=== PATIENT | male | born 1945 | race Caucasian/White ===

== ENCOUNTER 2016-10-20 12:30 | Outpatient (RCR) | payer MEDICARE, BC ==
[~2016-10-20 12:30] MED LIST: ADVIL200 MG PO; B COMPLEX #11 TA1 PO; CENTRUM SILVER1 TAB; CLARITIN 1010 MG/TAB PO; CORTIZONE-10 MAXIM11 TP; COUMADIN 22.5 MG/TAB PO; CPAP; DURLAZA162.5 MG PO; HCTZ12.5TAB PO; LOTENSIN40 MG PO; LYSINE 500500 MG/TAB PO; NASACORT OTC NS; NASONEX SPRAY17 GM NS; NATURAL C500 MG PO; NIACIN500 M4 PO; NITROSTAT0.4 MG/TAB SL; NORVASC 5MG5 MG/TAB PO; OSCAL 500 TAB500 MG PO; PLAVIX 75MG TAB75 MG PO; SALINE MIST 4545 ML NS; SINGULAIR 110 MG/TAB PO; TENORMIN 5050 MG/TAB PO; TYLENOL 500MG500 MG PO; TYLENOL 8 HR PO; VITAMIN D 400400 IU PO; ZOCOR 40MG40 MG PO
== END 2016-11-21 09:52 | disposition still patient (30) ==
LOC: MKS.ESL.PT 12:30
DX: M13.88 Other specified arthritis, other site (principal)
CPT/HCPCS: G8987-GP; G8988-GP

== ENCOUNTER 2017-07-27 08:02 | Inpatient (IN) | payer MEDICARE, BC ==
[~2017-07-27] VITALS: Ht 182.9 cm; Wt 109.2 kg
[2017-07-27 08:45] VITALS: BP 138/67; PULSE 53; TEMP 97.1
[2017-07-27] MEDS ORDERED: LIPITOR 40MG TA40 MG PO (08:57)
[2017-07-27] MEDS ORDERED: LOPRESSOR 550 MG/TAB PO (08:58)
[2017-07-27 10:20] LABS: HEMATOCRIT 43.4 % (42.0-52.0); HEMOGLOBIN 15.2 g/dl (13.5-18.0); MEAN CELL VOLUME 91 fl (80.0-100.0); MEAN CORPUSCULAR HEMOGLOBIN 32 pg (27.0-31.0); MEAN CORPUSCULAR HGB CONC 35 g/dl (33.0-37.0); MEAN PLATELET VOLUME 10.4 fl (7.4-10.4); PLATELET COUNT 223 K/mm3 (130-400); RED BLOOD COUNT 4.78 M/mm3 (4.20-5.60); REDCELL DISTRIBUTION WIDTH-CV 12.6 % (11.5-14.5); WHITE BLOOD COUNT 8.8 K/mm3 (4.8-10.8)
[2017-07-27 10:25] LABS: INR 2.8 (0.8-3.0); PROTHROMBIN TIME 32.8 SECONDS (9.7-12.8)
[2017-07-27 10:34] LABS: BILIRUBIN,TOTAL 0.8 mg/dL (0.0-1.0); CREATININE, serum 0.97 mg/dL (0.66-1.25); POTASSIUM 3.7 mmol/L (3.4-5.0); TOTAL PROTEIN 6.5 gm/dL (6.4-8.2)
[2017-07-27 11:24] VITALS: BP 136/86; PULSE 72; TEMP 97.5
[2017-07-27 16:15] VITALS: BP 126/73; PULSE 77; TEMP 97.6
[2017-07-27 20:59] VITALS: BP 116/63; PULSE 114; TEMP 97.3
[2017-07-28 00:02] VITALS: BP 125/70; PULSE 74; TEMP 98.1
[2017-07-28 03:54] VITALS: BP 117/75; PULSE 58; TEMP 98.1
[2017-07-28 07:30] LABS: INR 2.7 (0.8-3.0); PROTHROMBIN TIME 31.1 SECONDS (9.7-12.8)
[2017-07-28 07:43] LABS: CALCIUM 8.9 mg/dL (8.4-10.2); CREATININE, serum 1.05 mg/dL (0.66-1.25); POTASSIUM 3.6 mmol/L (3.4-5.0)
[2017-07-28 07:44] VITALS: BP 128/77; PULSE 58; TEMP 97.2
[2017-07-28 11:41] VITALS: BP 119/70; PULSE 58; TEMP 98.2
[2017-07-28 15:50] VITALS: BP 121/70; PULSE 63; TEMP 97
[2017-07-28 20:28] VITALS: BP 109/69; PULSE 56; TEMP 97.6
[2017-07-29] VITALS (8 sets, daily range): BP systolic 111–143; BP diastolic 73–88; PULSE 53–94; TEMP 97.6–98.4
[2017-07-29 07:53] LABS: INR 2.6 (0.8-3.0); PROTHROMBIN TIME 30.4 SECONDS (9.7-12.8)
[2017-07-29 07:58] LABS: CALCIUM 8.7 mg/dL (8.4-10.2); CREATININE, serum 1.03 mg/dL (0.66-1.25); POTASSIUM 3.1 mmol/L (3.4-5.0)
[2017-07-29 12:15] LABS: CALCIUM 8.9 mg/dL (8.4-10.2); CREATININE, serum 1.08 mg/dL (0.66-1.25); POTASSIUM 3.7 mmol/L (3.4-5.0)
[2017-07-29] MEDS ORDERED: BETAPACE 80MG80 MG PO (14:18)
[2017-07-29] MEDS ORDERED: K-DUR20 MEQ PO (14:19)
== END 2017-07-29 14:50 | disposition home or self-care (01) | DRG 310 ==
LOC: EUO 08:02 → MEDICAL 08:03
PROVIDERS: Internal Medicine Cardiovascular Disease
PROC: 5A2204Z Restoration of Cardiac Rhythm, Single (ICD-10-PCS; principal; 2017-07-27)
DX: I48.0 Paroxysmal atrial fibrillation (principal); Z95.5 Presence of coronary angioplasty implant and graft; Z79.01 Long term (current) use of anticoagulants
CPT/HCPCS: J2704

== ENCOUNTER 2020-02-28 05:22 | Day surgery (SDC) | payer MEDICARE, BC ==
[~2020-02-28] VITALS: Ht 180.3 cm; Wt 117.1 kg
[~2020-02-28 05:22] MED LIST changes: +BETAPACE 80MG80 MG PO; +K-DUR20 MEQ PO; +LIPITOR 40MG TA40 MG PO; +LOPRESSOR 550 MG/TAB PO; +SALINE 45 ML45 ML NS; -SALINE MIST 4545 ML NS; +TUSSIN DM CLEA120 ML PO
[2020-02-28 05:48] VITALS: BP 167/87; PULSE 59; TEMP 98.2
[2020-02-28 05:50] VITALS: BP 167/87; PULSE 59; TEMP 98.2
[2020-02-28] MEDS ORDERED: K-TAB20 PO (06:16)
[2020-02-28] MEDS ORDERED: COUMADIN 22.5 MG/TAB PO (06:18)
[2020-02-28] MEDS ORDERED: GOOD NEIGHBOR P10 M5 PO (06:21)
[2020-02-28] MEDS ORDERED: AFRIN 15 ML15 ML NS (06:22)
--- NOTE | 2020-02-28 06:54 | NUR ---
The patient was taken via cart to the recovery room to have a nerve block placed prior to surgery for post operative pain control. The patient's chart was sent with him and will be taken with him when he taken to the operating room. The patient's belongings were transferred to the recovery room and will be taken up to the 3rd floor with the patient post operatively.
--- NOTE | 2020-02-28 07:40 | NUR ---
The patient's surgery has been cancelled for today and has been rescheduled for later this week. The patient's IV to his right forearm was removed and a pressure dressing was applied to the site. The patient is dressed and ready to be escorted out. The patient contacted his and she is here to drive him home.
== END 2020-02-28 07:40 | disposition home or self-care (01) ==
LOC: SDCO 05:22 → INPTSU 05:22 → SURG 05:22 → EDSTATUS 07:30 → INPTSU 07:40 → SDCO 07:40
DX: N28.89 Other specified disorders of kidney and ureter (principal); Z53.9 Procedure and treatment not carried out, unspecified reason; I48.91 Unspecified atrial fibrillation; I25.10 Atherosclerotic heart disease of native coronary artery without angina pectoris; G47.33 Obstructive sleep apnea (adult) (pediatric); E78.5 Hyperlipidemia, unspecified; I10 Essential (primary) hypertension; N40.0 Benign prostatic hyperplasia without lower urinary tract symptoms; Z82.3 Family history of stroke; Z80.0 Family history of malignant neoplasm of digestive organs; Z80.9 Family history of malignant neoplasm, unspecified; Z79.01 Long term (current) use of anticoagulants; Z79.82 Long term (current) use of aspirin; Z79.899 Other long term (current) drug therapy
CPT/HCPCS: OP; J2250; J2704; J2795; J3010; J7120

== ENCOUNTER 2020-02-28 08:48 | Inpatient (IN) | payer MEDICARE, BC ==
[~2020-02-28] VITALS: Ht 182.9 cm; Wt 117.6 kg
[~2020-02-28 08:48] MED LIST changes: +AFRIN 15 ML15 ML NS; +GOOD NEIGHBOR P10 M5 PO; +K-TAB20 PO
[2020-03-02] VITALS (8 sets, daily range): BP systolic 133–176; BP diastolic 65–89; PULSE 57–82; TEMP 97.7–98
--- NOTE | 2020-03-02 11:25 | NUR ---
The patient was taken over to the recovery room via cart to have a nerve block completed. The patient's chart was sent with him over to the recovery room.
[2020-03-02 19:38] LABS: HEMATOCRIT 43.8 % (42.0-52.0); HEMOGLOBIN 14.8 g/dl (13.5-18.0); MEAN CELL VOLUME 92 fl (80.0-100.0); MEAN CORPUSCULAR HEMOGLOBIN 31 pg (27.0-31.0); MEAN CORPUSCULAR HGB CONC 34 g/dl (33.0-37.0); MEAN PLATELET VOLUME 10.3 fl (7.4-10.4); PLATELET COUNT 255 K/mm3 (130-400); RED BLOOD COUNT 4.76 M/mm3 (4.20-5.60); REDCELL DISTRIBUTION WIDTH-CV 13.1 % (11.5-14.5)
[2020-03-02 19:48] LABS: CALCIUM 8.7 mg/dL (8.4-10.2); CREATININE, serum 1.69 (0.66-1.25); POTASSIUM 4.7 mmol/L (3.4-5.0)
--- NOTE | 2020-03-02 21:15 | NUR ---
Transferred to room 342 from PACU via bed. IV to right FA #20 iinfusing LR@75ml/hr. Denies nausea/shortness of breath but states his pain is 15/10 on pain scale-described as constant burning/cramping/sharp pain. Post op vitals initiated. VINNY drain with 100mls of bright red output-emptied at this time. Lap sites x 6 with hogan set-edges well approximated. Alvarez cath with reddish tinged urine. Plan of care discussed for pain control/nausea/bedrest/NPO status. Denies questions/concerns. Call light in reach. Will monitor.
[2020-03-03] VITALS (9 sets, daily range): BP systolic 142–165; BP diastolic 68–96; PULSE 57–94; TEMP 97.7–98.6
--- NOTE | 2020-03-03 04:10 | NUR ---
Repositioned in bed with pillow support. Blood pressure rechecked due to previous high read-144/68. Is slightly confused and hallucinating asking "is there something climbing on that wall over there?" Has had k pad on left lower back off and on due to back pain. Total VINNY drain output this shift 220mls serosanguineous fluid. Alicea output 1150-light red to dark red in color. Have had issues with pain control-frequent repositioning and pillow support. IV to left wrist with LR@75mls/hr. SCDs bilat.
--- NOTE | 2020-03-03 06:00 | NUR ---
Rested last few hours of shift. Issues with pain control during recovery. Did get confused/hallucintations after last dose of pain medications. K Pad given for back pain to left side. called x 2 for updates and stated there is an issue with chronic back pain. Total VINNY drain output for this shift 240. LR@75mls per hour. Has been on bedrest. Tolerated some ice chips. Call light in reach. Will monitor.
[2020-03-03 06:22] LABS: HEMATOCRIT 44.1 % (42.0-52.0); HEMOGLOBIN 14.8 g/dl (13.5-18.0); MEAN CELL VOLUME 92 fl (80.0-100.0); MEAN CORPUSCULAR HEMOGLOBIN 31 pg (27.0-31.0); MEAN CORPUSCULAR HGB CONC 34 g/dl (33.0-37.0); MEAN PLATELET VOLUME 10.7 fl (7.4-10.4); PLATELET COUNT 247 K/mm3 (130-400); RED BLOOD COUNT 4.78 M/mm3 (4.20-5.60); REDCELL DISTRIBUTION WIDTH-CV 13.2 % (11.5-14.5)
[2020-03-03 06:25] LABS: CALCIUM 8.3 mg/dL (8.4-10.2); CREATININE, serum 1.57 (0.66-1.25); POTASSIUM 4.6 mmol/L (3.4-5.0)
--- NOTE | 2020-03-03 07:10 | NUR ---
Patient called out to nurses station, states pain 05/25 to lower back, chronic. Requests pain medicine. Meds given per orders.
--- NOTE | 2020-03-03 08:00 | NUR ---
PATIENT IS RESTING IN BED A&OX3. REPORTS BACK DISCOMFORT AND IS EAGER TO GET OUT OF BED. ASSESSMENT COMPLETE. MORPHINE GIVEN TO EASE PAIN 05/25. VINNY DRAIN WITH BLODY OUTPUT. LAP SITES WELL APPROXIMATED. IV TO RFA IS CDI WITH FLUIDS INFUSING PER ORDER. NO FURTHER NEEDS AT THIS TIME.
--- NOTE | 2020-03-03 08:25 | NUR ---
Patient in bed resting. Alert and oriented x 3. Assessment complete. Lap sites x 6 with edges well approximated, hogan set. VINNY to bulb compression with bloody drainage present. SCDs to BLE. Alicea to dependent drainage with freedom urine in bag. Fluids infusing per orders to right forarm. States roxycodone did not help with pain, pain remains 7/10 to lower back. Morpine given per orders. Denies further needs at this time. Will continue to monitor.
--- NOTE | 2020-03-03 10:45 | NUR ---
Dr. Rincon in to see patient.
--- NOTE | 2020-03-03 11:30 | NUR ---
Patient reports pain 5/10 to lower back, refuses additional pain medications at this time. Would like to get up and ambulate as soon as restrictions are over.
--- NOTE | 2020-03-03 15:07 | NUR ---
PATIENT CONTINUES TO USE INCENTIVE SPIROMETRY AND DEEP BREATHE. REPORTS BACK PAIN OF 5/10. KPAD TO BACK TO RELIEVE PRESSURE. NO FURTHER NEEDS AT THIS TIME. WILL CONTINUE TO MONITOR.
[2020-03-03 17:08] LABS: MUCOUS Present /lpf; PH 5 (5-8); SQUAMOUS EPITHELIAL 0-2 /hpf; URINE APPEARANCE Hazy; URINE BACTERIA Rare /hpf; URINE BILIRUBIN Negative (NEGATIVE); URINE BLOOD 3+ (NEGATIVE); URINE COLOR Yellow; URINE GLUCOSE Negative (NEGATIVE); URINE KETONE Negative (NEGATIVE); URINE LEUKOCYTE ESTERASE Negative (NEGATIVE); URINE NITRATE Negative (NEGATIVE); URINE PROTEIN(semi-quant) 1+ (NEGATIVE); URINE RBC >50 /hpf; URINE UROBILINOGEN Negative (NEGATIVE)
--- NOTE | 2020-03-03 19:05 | NUR ---
Patient has done well throughout the day. States he was able to take a few steps today with physical therapy. Repositioned throughout the day for comfort. Has requested pain meds for lower back pain throughout the day. K-pad applied, states relief. Patient denies passing gas but states belching. Starting to have right upper arm pain, educated patient on gas pain and increasing activity. Tolerating clear liquids without difficulties. IV to INT. Alicea maintained to dependent drainge with clear freedom urine in bag. VINNY maintianed to bulb compression with bloody drainage. Denies further needs at this time. Reported off to material handler 1st shift.
--- NOTE | 2020-03-03 20:00 | NUR ---
Report received. 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 Assessment complete. VS stable. A&Ox3. Abdominal lap sites x5-drainage marked. VINNY drain site with gauze/tegaderm dressing-old drainage noted. Denies nausea/shortness of breath. Rating pain 3/10 to left side of back-described as constant pressure. Denies need for pain meds-k pad applied. States he will wait a little longer before taking pain meds. Alicea cath with yellow urine/sediment. Scant amount of VINNY drain output-serosanguineous. Tolerating PO-IV to right forearm INT. Plan of care discussed for this shift to include pain control and attempting to get up out of bed. Verbalizes understanding but states he doesnt think he can do it. Denies flatus. States he has belched a few times. Denies needs-states he is going to FaceTime with his family. Encouraged to call for questions/concerns. Verbalizes understanding. Call light in reach. Will monitor.
--- NOTE | 2020-03-03 21:00 | NUR ---
C/O pain to abdomen radiating to shoulder. States he can feel the gas pressure. Encouraged to attempt to get up out of bed. Assisted to side of bed. Sat on edge of bed for approx 10 minutes. Used walker to aid in standing. Did take several steps side to side but states he cant ambulate further due to intense back pain. Stood for approx 10 minutes at bedside. Did state that the gas pressure felt better. Encouraged to try chewing gum as well. IS used. Has continued to use IS regularly thus far this shift. Requesting pain meds for back pain-left side-described as a heavy pressure that is constant with intermittent "zaps." Tramadol 100mg given PO per dr order. Denies needs. Call light in reach. Will monitor.
--- NOTE | 2020-03-03 23:05 | NUR ---
Called stating he is ready to try to get some rest-requesting pain medications for back pain described as constant pressure-rated 6/10 on pain scale. Oxycodone 5mg [address] order. States he is exhausted and hopes he can get some rest. States he doesnt want to use the K pad due to making him hot. Assisted with CPAP application/set up. SCDS bilat. Call light in reach. Will monitor.
[2020-03-04 04:00] VITALS: BP 119/72; PULSE 80; TEMP 98
[2020-03-04 06:11] LABS: HEMATOCRIT 38.9 % (42.0-52.0); MEAN CELL VOLUME 93 fl (80.0-100.0); MEAN CORPUSCULAR HEMOGLOBIN 31 pg (27.0-31.0); MEAN CORPUSCULAR HGB CONC 33 g/dl (33.0-37.0); MEAN PLATELET VOLUME 10.8 fl (7.4-10.4); PLATELET COUNT 230 K/mm3 (130-400); RED BLOOD COUNT 4.17 M/mm3 (4.20-5.60); REDCELL DISTRIBUTION WIDTH-CV 13.5 % (11.5-14.5)
[2020-03-04 06:23] LABS: CALCIUM 8.2 mg/dL (8.4-10.2); CREATININE, serum 1.5 (0.66-1.25); POTASSIUM 3.7 mmol/L (3.4-5.0)
[2020-03-04 07:34] VITALS: BP 134/84; PULSE 87; TEMP 97.6
[2020-03-04 10:00] LABS: BAND 4 % (0-10); LYMPHOCYTE 27 % (20.0-51.0); NEUTROPHILS 62 % (42.0-75.2); PLATELET ESTIMATE NORMAL (NORMAL)
[2020-03-04 12:52] VITALS: BP 123/71; PULSE 74; TEMP 97.9
--- NOTE | 2020-03-04 13:25 | NUR ---
SW met with patient at patient's door to discuss discharge planning. Patient currently lives in [place] with is ed [phone] as EMr and care support. Patient indicated that he does not have a DPOA, and declined one at this time. Patient reports that he uses a walker and a CPAP at night, and that his PCP is Dr. Dee with an upcoming appointment on March 21. Patient indicated that he gets his meidcations from [facility] and online with no concerns. SW will continue to follow up.
--- NOTE | 2020-03-04 13:42 | NUR ---
Patient resting in bed. He was up to the chair this am. He was able to ambulate to sink & brush teeth. Patient is slow to move, but does well when up with walker, he does need alot of positive encouragement. Patient pain is better managed, continue to follow ERAS. Ultram for pain late this am & he was able to take nap. I did speak with his on the phone and update her on planc of care. Dr. Rincon rounded this am. Deanne remains to DD. Patient has scrotal edema, elevated on towel. Int. VINNY drain to compression. Lap site edges well approximated. Will monitor.
[2020-03-04 15:58] VITALS: BP 123/68; PULSE 79; TEMP 98.3
--- NOTE | 2020-03-04 18:07 | NUR ---
Patient sitting up in chair. He ambulated halls with walker & did well with encouragement. He continues to deny passing flatus, wanting to pass flatus so he can eat real food. Tolerating clears without nausea. Patient does continues to require O2 sats in high eighties on room air. Incentive spirometer used & continued use encourged. Alicea to dd with marginal output. Juan drain with minimal output. Patient falls asleep easy & snores. less pain medication requiremnts today
--- NOTE | 2020-03-04 19:00 | NUR ---
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 Assessment complete. VS stable. Sitting up in chair-very drowsy. States he is ready to lay down in bed. Stand by assist with walker/gait belt to sink-oral care complete. Stood up in room for approx five minutes-ambulated back to bed. Denies nausea/pain/shortness of breath. 6 Lap sites-edges well approximated-no redness/drainage. VINNY drain with scant amount of serosanguineous fluid. Abdomen firm with hypoactive bowel sounds all quadrants. -flatus. States he has been belching frequently. Teaching done on importance of ambulation-verbalizes understanding. Alicea cath with yellow urine-sediment. Tolerating PO. INt to Right FA flushes without difficulty. SCDs applied bilat. Call light in reach. Will monitor.
--- NOTE | 2020-03-04 19:17 | NUR ---
Patient back to bed after standing at sink & brushing his teeth. Tylenol for pain management per ERAS. Is used. Scds ble. Bedside report to Mary RAMIREZ
[2020-03-04 20:00] VITALS: BP 135/64; PULSE 72; TEMP 97.6
[2020-03-04 22:47] LABS: COLLECTION METHOD CLEAN CATCH
[2020-03-05] VITALS: BP 142/68; PULSE 82; TEMP 98
[2020-03-05 04:00] VITALS: BP 120/68; PULSE 77; TEMP 98.5
[2020-03-05 07:30] VITALS: BP 137/70; PULSE 80; TEMP 99
--- NOTE | 2020-03-05 07:50 | NUR ---
PATIENT AMBULATING IN HALLWAYS WITH PT. SEE PT NOTES.
[2020-03-05 08:01] LABS: HEMOGLOBIN 11.8 g/dl (13.5-18.0); MEAN CELL VOLUME 94 fl (80.0-100.0); MEAN CORPUSCULAR HEMOGLOBIN 31 pg (27.0-31.0); MEAN CORPUSCULAR HGB CONC 33 g/dl (33.0-37.0); PLATELET COUNT 197 K/mm3 (130-400); RED BLOOD COUNT 3.82 M/mm3 (4.20-5.60); REDCELL DISTRIBUTION WIDTH-CV 13.7 % (11.5-14.5)
[2020-03-05 08:03] LABS: HEMATOCRIT 35.8 % (42.0-52.0)
[2020-03-05 08:19] LABS: CALCIUM 8.3 mg/dL (8.4-10.2); CREATININE, serum 1.69 (0.66-1.25); POTASSIUM 3.5 mmol/L (3.4-5.0)
--- NOTE | 2020-03-05 08:30 | NUR ---
PATIENT REPORTS BACK PAIN. GAVE PAIN MEDS PER ORDER TO RELIEVE PAIN. REMOVED CAGLE CATHETER WITH 350 CC OUTPUT. WILL CONTINUE TO MONITOR.
[2020-03-05 08:56] LABS: BAND 7 % (0-10); EOSINOPHIL 1 % (0-4); LYMPHOCYTE 20 % (20.0-51.0); NEUTROPHILS 66 % (42.0-75.2); PLATELET ESTIMATE NORMAL (NORMAL)
--- NOTE | 2020-03-05 11:20 | NUR ---
First visit from the media analyst. No needs right now.
[2020-03-05 11:24] VITALS: BP 128/61; PULSE 71; TEMP 98.9
--- NOTE | 2020-03-05 12:00 | NUR ---
PATIENT AMBULATING IN HALLS AGAIN. GAIT SLOW BUT STEADY.
--- NOTE | 2020-03-05 14:45 | NUR ---
PATIENT OUT WALKING HALLS AGAIN. GAIT STEADY. PATIENT TOLERATING ACTIVITY WELL. PATIENT DRANK PRUNE JUICE X2 TO HELP GET BOWLS MOVING. PATIENT REPORTS HE STILL ISN'T PASSING GAS. NO C/O N/V.
--- NOTE | 2020-03-05 15:39 | NUR ---
DC'd VINNY tube per orders. Covered with 4x4 gauze and foam tape. Patient sitting in recliner. No further needs at this time.
[2020-03-05 15:45] VITALS: BP 132/66; PULSE 73; TEMP 98
--- NOTE | 2020-03-05 19:45 | NUR ---
Received report from JAMES Contreras. Pt was sitting up in his chair at this time. Pt did have oxygen on at this time. Pt requested fresh water which was provided to him at this time. When I returned with the pts water he was ambulating aroung the room at this time to get to his bed. Pt does have his call light within reacha and his bed is in lowest position at this time.
[2020-03-05 21:38] VITALS: BP 139/65; PULSE 76; TEMP 98.1
[2020-03-06 00:26] VITALS: BP 125/67; PULSE 71; TEMP 97.9
--- NOTE | 2020-03-06 02:13 | NUR ---
Pt is currently sleeping in his be with his Cpap on at this time. Pt has his call light within reach.
[2020-03-06 04:19] VITALS: BP 137/71; PULSE 67; TEMP 98.1
--- NOTE | 2020-03-06 07:05 | NUR ---
Pt currently resting in bed. Pt has his call light within reach. Pt did stated that he is willing to ambulate down the hallway this morning. Pt has his call light within reach and his bed is in lowest positiion
[2020-03-06 08:26] VITALS: BP 137/63; PULSE 75; TEMP 98.4
--- NOTE | 2020-03-06 08:29 | NUR ---
Reported off to JAMES De La Cruz. Pt is currently sitting up in his bed. His call light is within reach.
--- NOTE | 2020-03-06 10:43 | NUR ---
SW met with the patient to introduce oneself and revisit the discharge plan. The patient plans to return home with no services. PT is recommending home. The patient reports he has plenty of support at home and did stairs today with PT. The patient stated that he would discharge as soon as his bowls get moving. Will continue to monitor.
[2020-03-06 11:14] VITALS: BP 134/71; PULSE 73; TEMP 97.9
--- NOTE | 2020-03-06 11:30 | NUR ---
PATIENT UP TO RECLINER INDEPENDENTLY. AMBULATING IN LEW WITH SBA. MANJINDER LENTZ IN TO SEE PT TODAY. INCISIONS TO ABD CDI WITH ONE SITE COVERED WITH GAUZE.
[2020-03-06 15:32] VITALS: BP 147/79; PULSE 75; TEMP 98.7
--- NOTE | 2020-03-06 18:48 | NUR ---
REPORT TO HEIDI RAMIREZ.
[2020-03-06 20:10] VITALS: BP 151/78; PULSE 76; TEMP 98.2
--- NOTE | 2020-03-06 21:55 | NUR ---
PATIENT DOING WELL TONIGHT. ALERT AND ORIENTED. C/O MILD GAS PAIN AND ACHING TO ABD AND LOWER BACK. SCHEDULED TYLENOL GIVEN. LAP SITES CDI WITH GUAZE OVER 2 OF THEM. VINNY DRAIN SITE IS CDI WITH GUAZE AND TAPE. INT TO R FA FLUSHES EASILY. TOOK SCHEDULED MEDICATIONS WITHOUT ISSUE. STOOL SOFTENER GIVEN TO PROMOTE BM. NO FURTHER NEEDS AT THIS TIME. PATIENT RESTING COMFORTABLY IN BED. CALL LIGHT IN REACH. WILL CONTINUE TO MONITOR.
[2020-03-07 00:43] VITALS: BP 152/75; PULSE 77; TEMP 97.9
[2020-03-07 06:03] VITALS: BP 155/83; PULSE 79; TEMP 97.8
--- NOTE | 2020-03-07 06:57 | NUR ---
Report from Karis RAMIREZ.
--- NOTE | 2020-03-07 08:01 | NUR ---
PT UP TO RECLINER FOR BREAKFAST. AT 80 % OF BREAKFAST TRAY, UP INDEPNDENTLY AMBULATING IN HALLS, PT REPORTS PASSING ELIZABET BUT NO BOWEL MOVEMENT YET. BOWEL SOUNDS PRESENT. LAP SITES CDI.
[2020-03-07 08:08] VITALS: BP 143/64; PULSE 82; TEMP 97.8
--- NOTE | 2020-03-07 10:35 | NUR ---
The patient is to tentatively discharge home today, 03/07. SW met with the patient to present IM form. The patient understood his rights. Due to COVID-19 social distancing precautions the patient gave SW permission to sign on his behalf. The original was placed in the chart and a copy was provided to the patient.
--- NOTE | 2020-03-07 15:09 | NUR ---
DISCHARGE INSTRUCTIONS PROVIDED PATIENT AND QUESTIONS ANSWERED AFTER CRITERIA MET. PT TAKEN TO ED ENTRANCE PER WHEEL CHAIR AND PT LEFT IN POV.
== END 2020-03-07 14:05 | disposition home or self-care (01) | DRG 659 ==
LOC: INPTSU 03-02 09:32 → SURG 03-02 12:30
PROVIDERS: Physician Assistant; ADMIT Urology
PROC: 0DNK4ZZ Release Ascending Colon, Percutaneous Endoscopic Approach (ICD-10-PCS; 2020-03-02)
PROC: 0DNH4ZZ Release Cecum, Percutaneous Endoscopic Approach (ICD-10-PCS; 2020-03-02)
PROC: 0DNU4ZZ Release Omentum, Percutaneous Endoscopic Approach (ICD-10-PCS; 2020-03-02)
PROC: 8E0W4CZ Robotic Assisted Procedure of Trunk Region, Percutaneous Endoscopic Approach (ICD-10-PCS; 2020-03-02)
PROC: 0TB04ZZ Excision of Right Kidney, Percutaneous Endoscopic Approach (ICD-10-PCS; principal; 2020-03-02 12:30)
DX: N28.89 Other specified disorders of kidney and ureter (principal); J96.01 Acute respiratory failure with hypoxia; E87.4 Mixed disorder of acid-base balance; K56.7 Ileus, unspecified; E78.5 Hyperlipidemia, unspecified; I25.10 Atherosclerotic heart disease of native coronary artery without angina pectoris; I48.0 Paroxysmal atrial fibrillation; N40.0 Benign prostatic hyperplasia without lower urinary tract symptoms; G47.33 Obstructive sleep apnea (adult) (pediatric); J30.2 Other seasonal allergic rhinitis; I48.91 Unspecified atrial fibrillation; N17.9 Acute kidney failure, unspecified; I10 Essential (primary) hypertension; R73.9 Hyperglycemia, unspecified; K59.00 Constipation, unspecified; Z95.818 Presence of other cardiac implants and grafts; Z90.89 Acquired absence of other organs
CPT/HCPCS: 99223; 99232-AI; 99233-AI; A4314; A9284; J0690; J2250; J2270; J2405; J2704; J3010; J3475; J7030; J7120

== ENCOUNTER 2020-03-30 07:53 | Day surgery (SDC) | payer MEDICARE, BC ==
[2020-03-30] MEDS ORDERED: JANTOVEN2.5 MG PO (08:34)
[2020-03-30] MEDS ORDERED: ULTRAM 50MG TAB50 MG PO (08:34)
[2020-03-30] MEDS ORDERED: ASPIRIN E.C. 8181 MG PO (08:35)
[2020-03-30] MEDS ORDERED: VITAMIN C500 MG PO (08:35)
[2020-03-30] MEDS ORDERED: COLACE 100100 MG/CAP PO (08:36)
[2020-03-30] MEDS ORDERED: NORVASC 10MG10 MG PO (09:17)
[2020-03-30] MEDS ORDERED: PACERONE400 MG PO (09:19)
--- NOTE | 2020-03-30 09:46 | NUR ---
Pt in SR. Cardioversion/EVAN cancelled per Dr. Cordova. Discharge instructions with new meds and follow up given to pt. Pt ambulated to private car
== END 2020-03-30 09:47 | disposition home or self-care (01) ==
LOC: COL.CAR 07:53
DX: I48.91 Unspecified atrial fibrillation (principal); Z53.8 Procedure and treatment not carried out for other reasons; I25.10 Atherosclerotic heart disease of native coronary artery without angina pectoris; I10 Essential (primary) hypertension; E78.5 Hyperlipidemia, unspecified; G47.33 Obstructive sleep apnea (adult) (pediatric); Z95.5 Presence of coronary angioplasty implant and graft; Z85.828 Personal history of other malignant neoplasm of skin

== ENCOUNTER → 2020-07-14 | Emergency (ER) | payer MEDICARE, BC ==
[~2020-07-14] VITALS: Ht 180.3 cm; Wt 109.1 kg
[~2020-07-14] MED LIST changes: +ASPIRIN E.C. 8181 MG PO; +COLACE 100100 MG/CAP PO; +JANTOVEN2.5 MG PO; +NORVASC 10MG10 MG PO; +PACERONE400 MG PO; +ULTRAM 50MG TAB50 MG PO; +VITAMIN C500 MG PO
[2020-07-14 19:03] VITALS: TEMP 98
[2020-07-14 19:39] LABS: BASO # 0.1 (0.0-0.2); BASO % 0.4 % (0.0-2.0); EOS % 0.3 % (0-4.0); GRAN % 70.3 % (42.2-75.2); HEMATOCRIT 40.6 % (42.0-52.0); HEMOGLOBIN 13.8 g/dl (13.5-18.0); LYMPH # 2.3 (1.2-3.4); LYMPH % 20.7 % (20.0-51.0); MEAN CELL VOLUME 91 fl (80.0-100.0); MEAN CORPUSCULAR HEMOGLOBIN 31 pg (27.0-31.0); MEAN CORPUSCULAR HGB CONC 34 g/dl (33.0-37.0); MEAN PLATELET VOLUME 10.1 fl (7.4-10.4); MONO # 0.9 (0.1-0.6); MONO % 7.9 % (1.7-9.3); PLATELET COUNT 269 K/mm3 (130-400); RED BLOOD COUNT 4.47 M/mm3 (4.20-5.60); REDCELL DISTRIBUTION WIDTH-CV 13.3 % (11.5-14.5)
[2020-07-14 19:45] LABS: INR 1.9 (0.8-3.0); PROTHROMBIN TIME 21.4 SECONDS (9.7-12.8)
[2020-07-14 19:48] LABS: ALBUMIN 4.2 gm/dL (3.5-5.0); BILIRUBIN,TOTAL 0.6 mg/dL (0.0-1.0); CALCIUM 8.9 mg/dL (8.4-10.2); CREATININE, serum 1.83 (0.66-1.25); POTASSIUM 3.3 mmol/L (3.4-5.0); TOTAL PROTEIN 7.4 gm/dL (6.4-8.2)
[2020-07-14 20:40] VITALS: BP 126/76; PULSE 83
== END ==
LOC: COL.ER 18:59
PROVIDERS: Emergency Medicine
DX: M23.91 Unspecified internal derangement of right knee (principal); I48.91 Unspecified atrial fibrillation; I25.10 Atherosclerotic heart disease of native coronary artery without angina pectoris; I10 Essential (primary) hypertension; E78.00 Pure hypercholesterolemia, unspecified; Z79.01 Long term (current) use of anticoagulants; X50.1XXA Overexertion from prolonged static or awkward postures, initial encounter; Y92.007 Garden or yard of unspecified non-institutional (private) residence as the place of occurrence of the external cause
CPT/HCPCS: L1846

== ENCOUNTER → 2021-10-07 | Outpatient (CLI) | payer MEDICARE, BC | LOC: COL.RAD 11:53 | DX: R93.422 Abnormal radiologic findings on diagnostic imaging of left kidney (principal); R93.421 Abnormal radiologic findings on diagnostic imaging of right kidney; Z85.53 Personal history of malignant neoplasm of renal pelvis ==

== ENCOUNTER → 2022-04-28 | Outpatient (CLI) | payer MEDICARE, BC | LOC: COL.RAD 09:50 | DX: N28.89 Other specified disorders of kidney and ureter (principal) ==